=== PATIENT | female | born 1990 | race Caucasian/White ===

== ENCOUNTER 2017-09-20 15:13 | Emergency (ER) | payer SELFPAY ==
[~2017-09-20] VITALS: Ht 160 cm; Wt 108.0 kg
--- NOTE | 2017-09-20 15:26 | ER Report ---
History and Physical Time Seen By MD: 15:25 Hx. of Stated Complaint: right shoulder pain for a week. taking OTC meds without relief HPI/ROS CHIEF COMPLAINT: Right shoulder pain HISTORY OF PRESENT ILLNESS: 27-year-old female patient presents to emergency room with complaint of right shoulder pain. Patient states this been going on for approximately one week. She states she woke up in the morning and had this pain. She states she's taken [id number] medications for this with no improvement. She states the pain seems to be getting worse. She denies having any fevers, chills, nausea, vomiting or diarrhea. Patient denies any previous injury to the shoulder. Patient has not seen anybody prior to this for this injury. REVIEW OF SYSTEMS: Respiratory: No cough, no dyspnea. Cardiovascular: No chest pain, no palpitations. Gastrointestinal: No vomiting, no abdominal pain. Musculoskeletal: As noted above Allergies: Coded Allergies: No Known Drug Allergies (Unverified , 07/17/17) Home Meds Active Scripts Ketorolac Tromethamine (KETOROLAC TROMETHAMINE) 10 Mg Tab, 10 MG PO Q6H, #20 TAB Prov:ROBBIE SNYDER CORPORATE SPECIALIST 09/20/17 Past Medical/Surgical History Patient has a past medical history for reflux, ankle fracture, alcohol use, anxiety. Patient has a surgical history of tonsillectomy, adenoidectomy. Reviewed Nurses Notes: Yes Hx Smoking: Yes Smoking Status: Current: Every Day Smoker Hx Substance Use Disorder: No Hx Alcohol Use: Yes (occ.) Constitutional Vital Sign - Last 24 Hours 09/20/17 15:19 Temp 98.6 Pulse 78 Resp 14 B/P (MAP) 141/88 Pulse Ox 97 O2 Delivery Room Air Physical Exam General Appearance: The patient is alert, has no immediate need for airway protection and no current signs of toxicity. ENT: Tympanic membranes are pearly-nielsen, auditory canals are patent, mucous membranes are moist. Respiratory: Chest is non tender, lungs are clear to auscultation. Cardiac: regular rate and rhythm Gastrointestinal: Abdomen is soft and non tender, no masses, bowel sounds normal. Musculoskeletal: Neck: Neck is supple and non tender. Extremities have full range of motion and are non tender. Patient has tenderness to the right shoulder, there is no bruising, no swelling noted. She has no numbness or tingling to her hand. Skin: No rashes or lesions. DIFFERENTIAL DIAGNOSIS: After history and physical exam differential diagnosis was considered for shoulder strain, fracture, dislocation, contusion. Medical Decision Making EKG/Imaging Imaging EXAMINATION: Right shoulder 2 views. HISTORY: Shoulder pain. COMPARISON: None FINDINGS: No evidence of acute fracture or dislocation about the right shoulder. Normal alignment at the glenohumeral and acromioclavicular joints. The subacromial space is preserved. Visualized upper right ribs appear intact. IMPRESSION: Negative right shoulder. Report Dictated By: Homer Wray MD at 09/20/2017 4:14 PM Report E-Signed By: Homer Wray MD at 09/20/2017 4:15 PM ED Course/Re-evaluation ED Course Patient was admitted to an exam room, history and physical were obtained. Differential diagnoses were considered. On examination there is no bruising, swelling to the shoulder. There is tenderness to palpation. X-ray of the right shoulder was done which was negative for any acute abnormalities. I discussed the findings with the patient. I believe her looking at a strain of the deltoid muscle. We will go ahead and place her in a sling. She'll be given a prescription for a limited supply of Toradol. She is to follow-up with her primary care provider in the next week if pain does not improve. If there's no improvement is related referral to physical therapy will be the next step. I discussed this with the patient who verbalized understanding and agreement. Decision to Disposition Date: Sep 20, 2017 Decision to Disposition Time: 16:25 Depart Departure Latest Vital Signs Vital Signs Date Time Temp Pulse Resp B/P (MAP) Pulse Ox O2 Delivery O2 Flow Rate FiO2 09/20/17 15:19 98.6 78 14 141/88 97 Room Air Impression: Primary Impression: Right shoulder strain Condition: Improved Disposition: HOME OR SELF-CARE New Scripts Ketorolac Tromethamine (KETOROLAC TROMETHAMINE) 10 Mg Tab 10 MG PO Q6H, #20 TAB Prov: ROBBIE SNYDER 09/20/17 Patient Instructions: Muscle Strain (ED) Additional Instructions: Limit activity by pain. Ice the shoulder 2-3 times a day for 20-30 minutes. Wear the sling 23/24 hours a day. Take the Toradol as needed for pain. Follow up with your primary care in the next week. If there is no improvement you may need to follow up with Physical Therapy. Return to the ER if condition worsens. Problem Qualifiers Primary Impression: Right shoulder strain Encounter type: initial encounter Qualified Codes: S46.911A - Strain of unspecified muscle, fascia and tendon at shoulder and upper arm level, right arm , initial encounter ROBBIE SNYDER Sep 20, 2017 15:26
--- NOTE | 2017-09-20 16:19 | RADIOLOGY IMAGING REPORT ---
FACILITY: [facility] PATIENT NAME: Juliana Del Cid : 1990 MR: [id number] V: [id number] EXAM DATE: ORDERING PHYSICIAN: ROBBIE SNYDER TECHNOLOGIST: Location: [facility] [place] Patient: Juliana Del Cid : 1990 Visit/Account:[id number] Date of Sevice: 09/20/2017 EXAMINATION: Right shoulder 2 views. HISTORY: Shoulder pain. COMPARISON: None FINDINGS: No evidence of acute fracture or dislocation about the right shoulder. Normal alignment at the glenoh umeral and acromioclavicular joints. The subacromial space is preserved. Visualized upper right ribs appear intact. IMPRESSION: Negative right shoulder. Report Dictated By: Homer Wray MD at 09/20/2017 4:14 PM Report E-Signed By: Homer Wray MD at 09/20/2017 4:15 PM WSN:[id number]
[2017-09-20] MEDS ORDERED: KET10 PO (16:23)
[2017-09-20 16:30] VITALS: BP 126/87
== END 2017-09-20 16:31 | disposition home or self-care (01) ==
LOC: ER 15:29
DX: S46.911A Strain of unspecified muscle, fascia and tendon at shoulder and upper arm level, right arm, initial encounter (principal)
CPT/HCPCS: 73030; 99283; A4565